=== PATIENT | female | born 1990 | race Caucasian/White ===

== ENCOUNTER 2019-05-08 09:48 | Outpatient (CLI) | payer MEDICAID | END 2019-05-08 13:40 | disposition home or self-care (01) | LOC: LAB 09:48 → TRG 12:57 → LAB 13:40 | PROVIDERS: ATTEND Obstetrics & Gynecology | DX: O26.893 Other specified pregnancy related conditions, third trimester (principal); O13.2 Gestational [pregnancy-induced] hypertension without significant proteinuria, second trimester; Z67.41 Type O blood, Rh negative; Z3A.27 27 weeks gestation of pregnancy | CPT/HCPCS: 86850; 86900; 86901; 96372; J2790 ==

== ENCOUNTER 2019-05-18 10:54 | Outpatient (CLI) | payer MEDICAID ==
[2019-05-18] MEDS ORDERED: LACTATED RINGERS 500 ML IV ONE (11:07)
[2019-05-18 13:52] VITALS: BP 98/49
[2019-05-18 15:01] LABS: Bilirubin,Urine NEG (Negative); Blood,Urine NEG (Negative); Color,Urine Amber (Yellow); Mucus,Urine FEW /HPF
== END 2019-05-18 15:07 | disposition home or self-care (01) ==
LOC: TRG 10:54
PROVIDERS: ATTEND Obstetrics & Gynecology
DX: O47.02 False labor before 37 completed weeks of gestation, second trimester (principal); O13.3 Gestational [pregnancy-induced] hypertension without significant proteinuria, third trimester; O24.419 Gestational diabetes mellitus in pregnancy, unspecified control; Z3A.26 26 weeks gestation of pregnancy
CPT/HCPCS: 59025; 81001

== ENCOUNTER 2019-07-27 10:02 | Inpatient (IN) | payer MEDICAID ==
[2019-07-27] MEDS ORDERED: BICITRA PO ONE (11:09)
[2019-07-27] MEDS ORDERED: REGLAN IV ONE (11:09)
[2019-07-27] MEDS ORDERED: PEPCID IV ONE (11:09)
--- NOTE | 2019-07-27 11:12 | Anesthesia Consultation ---
Anesthesia Consult and Med Hx Date of service: 07/27/19 - Airway Anesthetic Teeth Evaluation: Good ROM Head & Neck: Adequate Mental/Hyoid Distance: Adequate Mallampati Class: Class II Intubation Access Assessment: Probably Good - Pulmonary Exam CTA: Yes - Cardiac Exam Cardiac Exam: RRR - Pre-Operative Health Status ASA Pre-Surgery Classification: ASA3 Proposed Anesthetic Plan: Spinal - Pulmonary Hx Asthma: No COPD: No Hx Pneumonia: No - Cardiovascular System Hx Hypertension: Yes (during this ) - Central Nervous System Hx Seizures: No Hx Psychiatric Problems: No - Endocrine Hx Renal Disease: No Hx End Stage Renal Disease: No Hx Hypothyroidism: No Hx Hyperthyroidism: No - Hematic Hx Anemia: No Hx Sickle Cell Disease: No - Other Systems Hx Alcohol Use: No
--- NOTE | 2019-07-27 11:12 | Anesthesia Day of Surgery ---
Anesthesia Day of Surgery - Day of Surgery Patient Examined: Yes Patient H&P Reviewed: Yes Patient is NPO: Yes
[2019-07-27 11:19] LABS: Basophils % (Auto) 0.3 % (0.0-1.8); Eosinophils % (Auto) 0.5 % (0.0-4.3); Hematocrit 35.3 % (30.3-42.9); Hemoglobin 12.2 gm/dl (10.1-14.3); Lymphocytes # (Auto) 2.5 K/mm3 (1.2-5.4); Lymphocytes % (Auto) 28.3 % (13.4-35.0); Mean Corpuscular HGB Conc 35 % (30-34); Mean Corpuscular Volume 83 fl (79-97); Monocytes # (Auto) 0.8 K/mm3 (0.0-0.8); Monocytes % (Auto) 9.2 % (0.0-7.3); Platelet Count 209 K/mm3 (140-440); Red Blood Count 4.24 M/mm3 (3.65-5.03); Red Cell Distribution Width 14.6 % (13.2-15.2)
[2019-07-27] MEDS: LACTATED RINGERS 1,000 ML IV SCH ×2 (11:29→12:13)
[2019-07-27] MEDS ORDERED: PITOCin/NS 20 UNIT/1000ML DRIP 20 UNITS/1,000 ML BAG IV SCH ×2 (12:00→16:00)
[2019-07-27] MEDS ORDERED: ANCEF/STERILE WATER 2 GM/20 ML 2 GM/20 ML SYRINGE IV NR (12:00)
--- NOTE | 2019-07-27 12:06 | History and Physical Report ---
History of Present Illness Date of examination: 07/27/19 Date of admission: 07/27/19 10:02 Chief complaint: scheduled repeat csec History of present illness: This is a 29 yo at 39 weeks here for repeat csec secondary to previous csec. During her course at [place] she has had GDM on insulin controlled. 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 She has a hx of pree on asa and ca. She has obesity and Poly followed by MFM. 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 denies: smoking, alcohol abuse, prescription drug abuse - Obstetrical History Expected Date of Delivery: 08/02/19 Actual Gestation: 39 Week(s) 1 Day(s) : 2 Para: 1 Hx # Term Pregnancies: 0 Number of Pregnancies: 0 Spontaneous Abortions: 0 Induced : 0 Number of Living Children: 1 Medications and Allergies Allergies Allergy/AdvReac Type Severity Reaction Status Date / Time No Known Allergies Allergy Verified 05/18/19 11:06 Home Medications Medication Instructions Recorded Confirmed Last Taken Type Acetaminophen [Tylenol] 650 mg PO ONCE 11/06/13 07/27/19 08/04/14 History Pnv with Ca,No.72/Iron/FA 1 tab PO DAILY 08/07/14 07/27/19 07/26/19 21:00 Hist ory [ Plus Tablet] 1 Insulin NPH Human Isophane 16 units SQ QPM 07/27/19 07/27/19 07/26/19 17:00 History [Novolin N] 1 Insulin Regular, Human Nicu 14 units SQ QAM 07/27/19 07/27/19 07/26/19 08:00 History [HumuLIN R NICU (1 UNIT/1 ML)] 1 Active Meds: Active Medications Cefazolin Sodium (Ancef/Sterile Water 2 Gm/20 Ml) 2 gm in 20 mls @ 80 mls/hr IV PREOP NR; Protocol Stop: 07/27/19 23:59 Oxytocin/Sodium Chloride (Pitocin/Ns 20 Unit/1000ml Drip) 20 units in 1,000 mls @ 0 mls/hr IV TITR PARKER Lactated Ringer's (Lactated Ringers) 1,000 mls @ 2,250 mls/hr IV PREOP PARKER Stop: 07/28/19 12:27 Last Admin: 07/27/19 11:29 Dose: 2,250 mls/hr Documented by: Review of Systems All systems: negative - Vital Signs Vital signs: Vital Signs Pulse BP 75 116/56 07/27/19 10:42 07/27/19 10:42 Temp Pulse Resp BP Pulse Ox 97.9 F 75 18 116/56 07/27/19 11:18 07/27/19 11:18 07/27/19 11:18 07/27/19 10:42 - Physical Exam Breasts: Positive: normal Cardiovascular: Regular rate, Normal S1 Lungs: Positive: Clear to auscultation, Normal air movement Abdomen: Positive: normal appearance, soft, normal bowel sounds. Negative: distention, tenderness, guarding Genitourinary (Female): Positive: normal external genitalia, normal perenium Vagina: Positive: normal moisture Adnexa: both: normal Anus/Rectum: Positive: normal perianal skin, heme negative Extremities: Positive: normal Deep Tendon Reflex Grade: Normal +2 - Obstetrical FHR: category 1 Uterine Contraction Pattern: Irregular Results Result Diagrams: 07/27/19 11:00 Abnormal lab results 07/27/19 Range/Units 11:00 MCHC 35 H (30-34) % [place] % (Auto) 9.2 H (0.0-7.3) % All other labs normal. Assessment and Plan A/P IUP 39+1 weeks Morbid obesity Polyhydramnios hx of pree Previous csec admit for repeat csec signed consents IVF, labs proceed with repeat csec
[2019-07-27] MEDS ORDERED: WATER FOR IRRIG STERILE IR ONE (14:45)
[2019-07-27] MEDS ORDERED: NACL 0.9% IR ONE (14:45)
[2019-07-27] MEDS ORDERED: DEXMEDETOMIDINE IV ONE (14:51)
[2019-07-27] MEDS ORDERED: ZOFRAN ONE (14:51)
[2019-07-27] MEDS ORDERED: PERCOCET 5/325 PO PRN (15:36)
[2019-07-27] MEDS ORDERED: TORADOL IV PRN (15:36)
[2019-07-27] MEDS ORDERED: NARCAN 0.4 MG/1 ML IV PRN ×2 (15:36→15:56)
[2019-07-27] MEDS ORDERED: TYLENOL PO PRN (15:36)
[2019-07-27] MEDS ORDERED: LANSINOH TP PRN (15:36)
[2019-07-27] MEDS ORDERED: TUCKS PAD TP PRN (15:36)
[2019-07-27] MEDS ORDERED: PHENERGAN PR PRN ×2 (15:36→15:56)
[2019-07-27] MEDS ORDERED: MYLICON PO PRN (15:36)
[2019-07-27] MEDS ORDERED: MILK OF MAGNESIA PO PRN (15:36)
[2019-07-27] MEDS ORDERED: NORCO 5/325 PO PRN (15:36)
[2019-07-27] MEDS ORDERED: SENOKOT PO PRN (15:36)
[2019-07-27] MEDS ORDERED: ZOFRAN IV PRN ×2 (15:36→15:56)
--- NOTE | 2019-07-27 15:42 | Procedure Note ---
OB Delivery Note - Delivery Date of Delivery: 07/27/19 Surgeon: KATIUSKA GRACIA Estimated blood loss: other (800cc) - Section Preop diagnosis: repeat Postop diagnosis: same section procedure: section Disposition: PACU Complications: none Narrative: see op note - Infant A at 1 minute: 8 at 5 minutes: 9 Gender: Female (11 pounds 2 oz)
--- NOTE | 2019-07-27 15:49 | Operative Report ---
Operative Report Operative Report: PREOPERATIVE DIAGNOSES: 1. Intrauterine at 39 weeks. 2. History of previous section x1. The patient desires a repeat section. 3. Gestational DM controlled 4. Polyhydramnios 5. Morbid obesity 6. LGA POSTOPERATIVE DIAGNOSES: 1-6 TROY PROCEDURE PERFORMED: Repeat section ANESTHESIA: Spinal. ESTIMATED BLOOD LOSS: 800 mL. COMPLICATIONS: None. FINDINGS: Female in cephalic presentation with anteflexed head, Apgars were 8 at 1 minute and 9 at 5 minutes, weight 11 pounds 2 ounces. Normal uterus, tubes, and ovaries were noted. Adhesion from uterus to anterior body of uterus INDICATIONS: The patient is a 29-year-old 2, para 1 female, who presented to repeat section at term. The patient has a history of 1 previous section. The procedure was described to the patient in detail including possible risks of bleeding, infection, injury to surrounding organs, and the possible need for further surgery and informed consent was obtained. PROCEDURE NOTE: The patient was taken to the operating room where spinal anesthesia was administered without difficulty. The patient was prepped and draped in the usual sterile fashion in the dorsal supine position with a leftward tilt. A Pfannenstiel skin incision was made with the scalpel and carried through to the underlying layer of fascia using the Bovie. The fascia was incised in the midline and extended laterally using Martínez scissors. Felipe clamps were used to elevate the superior aspect of the fascial incision, which was elevated, and the underlying rectus muscles were dissected off bluntly and using Martínez scissors. Attention was then turned to the inferior aspect of the fascial incision, which in similar fashion was grasped with Felipe clamps, elevated, and the underlying rectus muscles were dissected off bluntly and using the Bovie. The rectus muscles were dissected in the midline. The peritoneum was identified and entered using Metzenbaum scissors; this incision was extended superiorly and inferiorly with good visualization of the bladder. The bladder blade was inserted. The vesicouterine peritoneum was identified and entered sharply using Metzenbaum scissors. This incision was extended laterally and the bladder flap was created digitally. The bladder blade was reinserted. The lower uterine segment was incised in a transverse fashion using the scalpel and extended using bandage scissors as well as manual traction. Clear fluid was noted. The was subsequently delivered using a Renate vacuum due to anteflexed head and difficulty in delivering the infant's head without the Renate. The nose and mouth were bulb suctioned. The cord was clamped and cut. The infant was subsequently handed to the awaiting nursery nurse. The placenta was delivered spontaneously intact with a three-vessel cord noted. The uterus was not exteriorized secondary to adhesion. The uterine incision was repaired in 2 layers using 0 vicryl sutures. Hemostasis was visualized with hemoblast. The uterine incision was reexamined and it was noted to be hemostatic. The pelvis was copiously irrigated. The rectus muscles were reapp roximated in the midline using 3-0 Vicryl. The fascia was closed with 0 Vicryl suture, the subcutaneous layer was closed with 3-0 plain gut, and the skin was closed with emanuel. Sponge, lap, and instrument counts were correct x2. The patient was stable at the completion of the procedure and was subsequently transferred to the recovery room in stable condition.
[2019-07-27] MEDS ORDERED: NUBAIN IV PRN (15:56)
[2019-07-27] MEDS ORDERED: PHENERGAN PO PRN (15:56)
--- NOTE | 2019-07-27 15:56 | Post Anesthesia Evaluation ---
- Post Anesthesia Evaluation Patient Participated: Yes Airway Patent: Yes Stable Respiratory Function: Yes Nausea/Vomiting: No Temp > 96.8F: Yes Pain Manageable: Yes Adequeate Hydration: Yes Anesthesia Complications: No Block Receding Appropriately: Yes
[2019-07-27] MEDS ORDERED: D5LR 1,000 ML IV SCH (16:00)
[2019-07-27] MEDS ORDERED: SODIUM CHLORIDE FLUSH SYRINGE 10 ML IV NR ×2 (16:00)
[2019-07-27] MEDS: TORADOL IV PRN (20:32)
[2019-07-27] MEDS: ROBITUSSIN PO PRN (20:34)
[2019-07-28] MEDS: ROBITUSSIN PO PRN ×4 (00:24→20:10)
[2019-07-28] MEDS: MORPHINE IV PRN ×2 (00:24→04:56)
[2019-07-28] MEDS ORDERED: LACTATED RINGERS 1,000 ML IV SCH (02:00)
[2019-07-28] MEDS: TORADOL IV PRN (02:31)
[2019-07-28 05:58] LABS: Hematocrit 30.6 % (30.3-42.9); Hemoglobin 10.3 gm/dl (10.1-14.3)
[2019-07-28] MEDS ORDERED: BOOSTRIX IM ONE (06:00)
[2019-07-28] MEDS ORDERED: M-M-R II VACCINE SUB-Q ONE (06:00)
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
[2019-07-28] MEDS: PERCOCET 5/325 PO PRN ×3 (09:00→23:48)
--- NOTE | 2019-07-28 09:32 | XRay Report ---
CHEST 2 VIEWS INDICATION / CLINICAL INFORMATION: s/p repeat csec with cough. COMPARISON: None available. FINDINGS: SUPPORT DEVICES: None. HEART / MEDIASTINUM: No significant abnormality. LUNGS / PLEURA: No significant pulmonary or pleural abnormality. No pneumothorax. ADDITIONAL FINDINGS: No significant additional findings. IMPRESSION: 1. No significant abnormality. Signer Name: Chantale Melgoza MD Signed: 07/28/2019 9:28 AM Workstation Name: [id number]
[2019-07-28] MEDS: IBUPROFEN PO PRN ×2 (12:05→18:35)
[2019-07-29] MEDS: PERCOCET 5/325 PO PRN ×3 (05:08→21:41)
--- NOTE | 2019-07-29 08:01 | Progress Note ---
Assessment and Plan POD2 s/p repeat c/s Gestational diabetes- POC BG wnl Desires to breast feed- provide breast pump while is in NICU Discharge to home tomorrow Subjective - Subjective Date of service: 07/29/19 Principal diagnosis: s/p repeat csec Interval history: Pt is POD2 s/p repeat section. Patient reports: appetite normal, voiding normally, pain well controlled, flatus, ambulating normally [place]: in NICU (fluid in lungs, tachypnea) Objective - Vital Signs Latest vital signs: Vital Signs Temp Pulse Resp BP Pulse Ox 07/29/19 05:08 20 07/29/19 00:07 97.8 F 76 20 105/56 98 07/28/19 23:48 20 07/28/19 16:47 98.2 F 65 18 101/60 97 07/28/19 12:05 18 07/28/19 09:00 18 07/28/19 08:56 98.0 F 81 20 124/71 99 Intake and Output 07/28/19 07/28/19 07/29/19 15:59 23:59 07:59 Intake Total 1080 1440 360 Output Total 600 Balance 480 1440 360 Intake: Oral 600 720 360 Intake, Free Water 480 720 Output: Urine 600 Void 600 Other: Total, Intake Amount 480 240 120 Total, Output Amount 300 # Voids Indwelling Catheter 500 Void 1 1 1 - Exam Cardiovascular: Present: Regular rate, Normal S1, Normal S2, No murmurs Lungs: Present: Clear to auscultation, Normal air movement Abdomen: Present: normal appearance, soft, normal bowel sounds Uterus: Present: normal, firm, fundal height below umbilicus Extremities: Present: normal Incision: Present: dressed
[2019-07-29] MEDS: IBUPROFEN PO PRN ×2 (12:40→21:42)
[2019-07-29] MEDS: ROBITUSSIN PO PRN ×2 (12:44→21:40)
[2019-07-29] MEDS: FEOSOL PO SCH (12:45)
--- NOTE | 2019-07-30 08:11 | Progress Note ---
Assessment and Plan POD3 s/p repeat c/s Gestational diabetes- POC BG wnl Pumping breasts Discharge to home today Subjective - Subjective Date of service: 07/30/19 Principal diagnosis: s/p repeat csec Interval history: Pt is POD3 s/p repeat section. Patient reports: appetite normal, voiding normally, pain well controlled, flatus, ambulating normally, other (productive cough) [place]: in NICU (pulmonary hypertension, murmur, small PDA. On oxygen therapy, will be weaning soon.) Objective - Vital Signs Latest vital signs: Vital Signs Temp Pulse Resp BP Pulse Ox 07/29/19 23:40 98.7 F 79 20 127/63 97 07/29/19 15:50 98.9 F 64 18 120/63 96 07/29/19 08:46 98.3 F 77 18 118/70 98 Intake and Output 07/29/19 07/30/19 07/30/19 23:59 07:59 15:59 Intake Total 1320 120 Balance 1320 120 Intake: Oral 600 120 Intake, Free Water 720 Other: Total, Intake Amount 120 120 # Voids Void 1 1 - Exam Cardiovascular: Present: Regular rate, Normal S1, Normal S2, No murmurs Lungs: Present: Clear to auscultation, Normal air movement Abdomen: Present: normal appearance, soft, normal bowel sounds Uterus: Present: normal, firm, fundal height below umbilicus Extremities: Present: normal Incision: Present: normal, dry, intact
--- NOTE | 2019-07-30 08:15 | Discharge Summary ---
Providers - Providers Date of Admission: 07/27/19 10:02 Date of discharge: 07/30/19 Attending physician: KATIUSKA GRACIA MD Primary care physician: CESAR JUSTIN Hospitalization Reason for admission: section Delivery: Procedure: repeat low transverse Incision: normal, dry, intact Other procedures: none complications: none Discharge diagnosis: IUP at term delivered [place] baby: female Hospital course: Pt presented for repeat LTCS at term. This , she was diagnosed with Insulin-dependent gestational diabetes, polyhydramnios, and LGA. Her is being treated in the NICU for pulmonary HTN, murmur, and small PDA. The patient had a post-surgical cough with normal chest x-ray. Condition at discharge: Good Disposition: DC-01 TO HOME OR SELFCARE Plan - Discharge Medications Prescriptions: Ferrous Sulfate [Feosol 325 MG tab] 325 mg PO BID #30 tablet Ibuprofen [Motrin] 600 mg PO Q8H PRN #30 tablet PRN Reason: Pain oxyCODONE /ACETAMINOPHEN [Percocet 5/325] 1 tab PO Q6HR PRN #30 tablet PRN Reason: Pain - Provider Discharge Summary Activity: routine, no sex for 6 weeks, no heavy lifting 4 weeks, no strenuous exercise Diet: routine Instructions: routine Additional instructions: [] Smoking cessation referral if applicable(refer to patient education folder for contact #) [] Refer to [facility] Booklet Call your doctor immediately for: * Fever > 100.5 * Heavy vaginal bleeding ( >1 pad per hour) * Severe persistent headache * Shortness of breath * Reddened, hot, painful area to leg or breast * Drainage or odor from incision. * Keep incision clean and dry at all times and follow doctor's instructions regarding bathing/showering Call [facility] to schedule an appointment at 10 days to remove emanuel. - Follow up plan Follow up: CESAR JUSTIN MD [Primary Care Provider] - 10 Days
[2019-07-30] MEDS: FEOSOL PO SCH (11:47)
[2019-07-30] MEDS: ROBITUSSIN PO PRN (11:48)
[2019-07-30 15:39] VITALS: BP 130/80
== END 2019-07-30 15:46 | disposition home or self-care (01) | DRG 765 ==
LOC: APU 10:02 → LD 10:35 → OB 17:25
PROVIDERS: ADMIT Obstetrics & Gynecology; ATTEND Obstetrics & Gynecology
PROC: 10D00Z1 Extraction of Products of Conception, Low, Open Approach (ICD-10-PCS; principal; 2019-07-27)
PROC: 3E0234Z Introduction of Serum, Toxoid and Vaccine into Muscle, Percutaneous Approach (ICD-10-PCS; 2019-07-28)
DX: O34.211 Maternal care for low transverse scar from previous cesarean delivery (principal); O10.92 Unspecified pre-existing hypertension complicating childbirth; O98.32 Other infections with a predominantly sexual mode of transmission complicating childbirth; E85.89 Other amyloidosis; O24.424 Gestational diabetes mellitus in childbirth, insulin controlled; O99.214 Obesity complicating childbirth; O36.63X0 Maternal care for excessive fetal growth, third trimester, not applicable or unspecified; O40.3XX0 Polyhydramnios, third trimester, not applicable or unspecified; Z37.0 Single live birth; E66.01 Morbid (severe) obesity due to excess calories; Z3A.39 39 weeks gestation of pregnancy; Z23 Encounter for immunization
CPT/HCPCS: 36415; 59025; 71046; 82962; 83036; 85014; 85018; 85025; 85461; 86592; 86850; 86900; 86901; 88307; 96360; 96361; 96374; G0378; A6250; J0690; J1885; J2270; J2405; J2590; J2765; J2790; J3490; J7120

== ENCOUNTER 2019-10-03 17:03 | Emergency (ER) | payer OTHER, MEDICAID ==
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
--- NOTE | 2019-10-03 18:47 | XRay Report ---
ABDOMEN 2 VIEW(S) INDICATION / CLINICAL INFORMATION: lower abdominal pain. COMPARISON: None available. FINDINGS: TUBES / LINES: None. BOWEL GAS PATTERN: No significant abnormality. FREE AIR / EXTRALUMINAL GAS: None seen. ADDITIONAL FINDINGS: No significant additional findings. IMPRESSION: 1. No significant abnormality. Signer Name: Thony Caldera MD Signed: 10/03/2019 6:43 PM Workstation Name: [id number]
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
[2019-10-03] MEDS ORDERED: CYCLOBENZAPRINE 10 MG TAB PO ONE (19:25)
[2019-10-03] MEDS ORDERED: HYDROcodone/ACETAMINOPHEN 5-325 MG TAB PO ONE (19:25)
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
[2019-10-03 20:06] LABS: Hematocrit 39.9 % (30.3-42.9); Hemoglobin 13.2 gm/dl (10.1-14.3); Mean Corpuscular HGB Conc 33 % (30-34); Mean Corpuscular Volume 82 fl (79-97); Platelet Count 290 K/mm3 (140-440); Red Blood Count 4.88 M/mm3 (3.65-5.03); Red Cell Distribution Width 15.5 % (13.2-15.2)
[2019-10-03 20:15] LABS: Basophils % (Auto) 0.4 % (0.0-1.8); Eosinophils % (Auto) 0.8 % (0.0-4.3); Lymphocytes % (Auto) 38.4 % (13.4-35.0); Monocytes % (Auto) 6.1 % (0.0-7.3)
[2019-10-03 20:16] LABS: Eosinophils # (Auto) 0.1 K/mm3 (0.0-0.4); Monocytes # (Auto) 0.6 K/mm3 (0.0-0.8)
[2019-10-03 20:24] LABS: BUN/Creatinine Ratio 20; Blood Urea Nitrogen 10 mg/dL (7-17); Calcium 9.3 mg/dL (8.4-10.2); Hemolysis Index 15
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
[2019-10-03 23:23] VITALS: BP 124/72
== END 2019-10-03 23:22 | disposition home or self-care (01) ==
LOC: ED 17:03
DX: S62.644A Nondisplaced fracture of proximal phalanx of right ring finger, initial encounter for closed fracture (principal); S39.012A Strain of muscle, fascia and tendon of lower back, initial encounter; I10 Essential (primary) hypertension; Z79.899 Other long term (current) drug therapy; Z79.4 Long term (current) use of insulin; V89.2XXA Person injured in unspecified motor-vehicle accident, traffic, initial encounter; Y93.89 Activity, other specified; Y92.488 Other paved roadways as the place of occurrence of the external cause; Y99.8 Other external cause status
CPT/HCPCS: 29130; 36415; 72100; 73130; 74018; 74177; 80048; 84703; 85025; 99284; Q9967